=== PATIENT | female | born 1945 | race Caucasian/White ===

== ENCOUNTER → 2019-11-12 11:04 | Outpatient (CLI) | payer MEDICARE, SELFPAY ==
--- NOTE | ~2019-11-12 | XR_ITS ---
XR shoulder RT min 2V 11/12/2019 12:05 Indication: Right shoulder pain Procedure: 4 views right shoulder Comparison: No prior studies for comparison. Findings: There is mild osteoarthritis of the right acromioclavicular joint. No fracture or traumatic malalignment. Osteopenia. Visualized lung parenchyma is unremarkable. No significant soft tissue abn ormality. Impression: 1: Mild osteoarthritis of the right acromioclavicular joint. Reviewed, dictated and finalized at location A. Impression: 1: Mild osteoarthritis of the right acromioclavicular joint.
== END ==
PROVIDERS: PCP Internal Medicine
DX: M19.011 Primary osteoarthritis, right shoulder (principal)
CPT/HCPCS: 73030

== ENCOUNTER → 2022-01-03 14:41 | Outpatient (CLI) | payer MEDICARE, SELFPAY ==
--- NOTE | ~2022-01-03 | US_ITS ---
EXAMINATION: US renal BI DATE: 01/03/2022 15:12 INDICATION: Chronic kidney disease TECHNIQUE: Multiple grayscale and Doppler ultrasound images of the kidneys were obtained. COMPARISON: None. FINDINGS: The right kidney measures 6.9 x 3.8 x 4.7 cm and contains a 2.4 cm cyst. The left kidney me asures 8.5 x 5.3 x 3.4 cm. The kidneys demonstrate normal parenchymal echogenicity. There is no hydro nephrosis. The bladder is incompletely distended but normal in appearance. IMPRESSION: 1. Mild atrophy of the kidneys. Reviewed, dictated and finalized at location F. ECT DEVELOPMENT ENGINEER
== END ==
PROVIDERS: PCP Internal Medicine; Visit Provider Internal Medicine Nephrology
DX: N18.32 Chronic kidney disease, stage 3b (principal); I10 Essential (primary) hypertension; E11.22 Type 2 diabetes mellitus with diabetic chronic kidney disease; E78.00 Pure hypercholesterolemia, unspecified; N26.1 Atrophy of kidney (terminal)
CPT/HCPCS: 76775

== ENCOUNTER 2024-12-17 11:09 | Emergency (ER) | payer MEDICARE, SELFPAY ==
--- NOTE | ~2024-12-17 | XR_ITS ---
PROCEDURE(S): 2 views of the left hip and AP pelvis INDICATION(S): Injury COMPARISON(S): None. TECHNIQUE: 2 radiographic images of the left hip and an AP pelvis image were submitted for interpretation. FINDINGS: Bones: There are no fractures seen. There are no destructive lesions or other lesions identified. Joints: There are no dislocations identified. There is no evidence of erosive arthropathy. There is a large calcification in the pelvis thought to lie in a uterine fibroid. 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 Vascular calcifications. IMPRESSION: No acute abnormalities are seen. Reviewed, dictated and finalized at location A.
[2024-12-17 11:14] VITALS: BP 145/60; PULSE 60; RESP 16; TEMP 36.4; O2SAT 96
--- OUTSIDE RECORDS SUMMARY | 2024-12-17 12:21 | XMS_ITS | Clinical Summary ---
Author Organization [facility] Address [address] [place] [place] [address] Care Team Providers Care Technology Integration Specialist Name Role Phone Nathan Roland MD Primary Care Provider [phone] Srinivas Hogan MD Unavailable Source Comments [facility],non-owned Affiliates and Associated Physician Practices is amultiple site organization consisting of ambulatory clinics and hospital sitesin [place], [place], [place] and [place]. This disclosure is being madepursuant to the Care Everywhere program and may not contain all information available regarding this patient. Last updated 17.[facility] Allergies No known active allergies Medications * Be aware that medications may not be up to date on this document. Alwaysverify current medications with the patient. ibuprofen (MOTRIN) 600 MG tablet Take 600 mg by mouth every 6 hours as needed for Pain Active amLODIPine (NORVASC) 5 MG tablet Take 5 mg by mouth once daily Active sitaGLIPtin-met FORMIN (JANUMET) 50-500 MG tablet Take 1 Tab by mouth 2 times daily with morning and evening meal Active tamoxifen (NOLVADEX) 20 MG tablet Take 20 mg by mouth once daily Active ALPRAZolam (XANAX) 0.5 MG tablet Take by mouth 3 times daily as needed for Anxiety Active Hydrocodone-Branden taminophen (VICODIN ES) 7.5-300 MG TABS Take 1 Tab by mouth Active pravastatin (PRAVACHOL) 80 MG tablet Take 80 mg by mouth once daily 12/22/2014 Active venlafaxine (EFFEXOR) 37.5 MG tablet Take 37.5 mg by mouth once daily 11/17/2014 Active Active Problems Problem Noted Date Diagnosed Date Primary osteoarthritis of right knee 02/01/2015 Social History Tobacco Use Types Packs/Day Years Used Date Smoking Tobacco: Unknown Alcohol Use Standard Drinks/Week Comments Not Asked 0 (1 standard drink = 0.6 oz pur e alcohol) Comments Unknown Sex and Gender Information Value Date Recorded Sex Assigned at Not on file Legal Sex Female 12:01 PM CDT Gender Identity Not on file Sexual Orientation Not on file Last Filed Vital Signs Vital Sign Reading Time Taken Comments Blood Pressure - - Pulse - - Temperature - - Respiratory Rate - - Oxygen Saturation - - Inhaled Oxygen Concentration - - Weight 56.7 kg (125 lb) 08/13/2014 11:45 AM CDT Height 154.9 cm (5' 1) 08/13/2014 11:45 AM CDT Body Mass Index 23.62 08/13/2014 11:45 AM CDT Plan of Treatment Health Maintenance Due Date Last Done Comments BONE DENSITY TESTING 1945 COVID-19 VACCINE (#1) 09/26/1952 HEPATITIS C SCREENING 09/22/1965 DTAP/TDAP/TD VACCINES (1 - Tdap) 09/26/1966 PNEUMOCOCCAL VACCINE 50+ (1 of 1 - PCV) 09/26/1997 ZOSTER VACCINE (1 of 2) 09/26/1997 Respiratory Syncytial Virus (RSV) Vaccine Pt: or over 60 yrs (1 - 1-dose 75+ series) 09/26/2022 DEPRESSION SCREENING 02/19/2024 MEDICARE AWV CALENDAR YEAR 2024 INFLUENZA VACCINE (#1) 2024 HEPATITIS B VACCINE Aged Out No longe r eligible based on patient's age to complete this topic HIB VACCINE Aged Out No longer eligi ble based on patient's age to complete this topic HPV VACCINE Aged Out No longer eligi ble based on patient's age to complete this topic MENINGOCOCCAL (Group B) VACC INE SHARED DECISION-MAKING Aged Out No longer eligibl e based on patient's age to complete this topic MENINGOCOCCAL GROUPS A/C/Y/W VACCINE Aged Out No longer eligible b ased on patient's age to complete this topic Insurance [employer] MEDICARE ADV Care Teams Technology Integration Specialist Relationship Specialty Start Date End Date Nathan Roland MD [address] [address] [address] [place] [address] PCP - General Internal Medicine 07/14/14 [place] [address] [place] [address] Orthopedic Surgery 08/13/14
--- OUTSIDE RECORDS SUMMARY | 2024-12-17 12:21 | XMS_ITS | Encounter Summary ---
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, including hip; Basal cell carcinoma of skin of nose Social History Tobacco Use Types Packs/Day Years Used Date Smoking Tobacco: Unknown Alcohol Use Standard Drinks/Week Comments Not Asked 0 (1 standard drink = 0.6 oz pur e alcohol) Comments Unknown Sex and Gender Information Value Date Recorded Sex Assigned at Not on file Legal Sex Female 12:01 PM CDT Gender Identity Not on file Sexual Orientation Not on file documented as of this encounter Plan of Treatment Not on file documented as of this encounter Procedures Procedure Name Priority Date/Time Associated Diagnosis Comments DERMATOPATHOLOGY Routine 07/10/2023 12:0 0 AM CDT 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 SKIN, right anterior medial distal thigh: DERMAL SCAR RESIDUAL SQUAMOUS CELL CARCINOMA NOT IDENTIFIED (L90.5) Specimen B. SKIN, nasal supratip: CHRONIC PERIFOLLICULITIS (L73.8) (see microscopic description and comment) 12:30 PM CDT DERMATOPATHOLOGY LABORATORY at 1230 CDT Clinical History A: Scc. Check margins. B: Bcc. 12:30 PM CDT DERMATOPATHOLOGY LABORATORY Gross Description Specimen A: Received is one formalin filled container labeled with the patient's name and designated right anterior medial distal thigh. The specimen consists of a non-oriented ellipse of skin measuring 51k00w2 mm. The epidermal surface is unremarkable. The margin is inked green. The 12 o'clock and 6 o'clock tips are submitted in cassette 1. The remainder of the ellipse is serially sectioned and submitted in cassette 2. Jar 0. Specimen B: Received is one formalin filled container labeled with the patient's name and designated nasal supratip. The specimen consists of a shave biopsy measuring 5x3x1 mm. Jar 0. 12:30 PM CDT DERMATOPATHOLOGY LABORATORY Microscopic Description Specimen A. SKIN, right anterior medial distal thigh: There are fibroblasts and collagen bundles oriented parallel to the skin surface. There are elongated blood vessels, some of which are oriented perpendicular to the skin surface. No residual squamous cell carcinoma is identified. Specimen B. SKIN, nasal supratip: Sections show a perifollicular lymphohistiocytic infiltrate. Additional deeper sections were obtained and reviewed. COMMENT: Given the superficial nature of the biopsy specimen, a deeper dermal process cannot be excluded. 12:30 PM CDT DERMATOPATHOLOGY LABORATORY Disclaimer An external and internal positive and negative controls are appropriate for the histochemical, immunohistochemical and immunofluorescence stain(s) in this case (if any), except where stated explicitly. The performance characteristics of the stain(s) cited in this report were developed and its performance characteristic determined by the Dermatopathology Laboratory at [facility], directed by Dr. Ricky De La Fuente. These tests need not be, and therefore are not, approved by the [place] Food and Drug Administration. The tests are used for clinical purposes. Billing Codes Specimen Charges Stain Charges 63106 05645 1 1 4 12:30 PM CDT DERMATOPATHOLOGY LABORATORY Embedded Images 12:30 PM CDT DERMATOPATHOLOGY LABORATORY Pathology/Cytology TISSUE SPECIMEN FROM SKIN / Unknown 07/10/2023 07/11/2023 1:56 PM CDT Miscellaneous samples (specimen) TISSUE SPECIMEN FROM SKIN / Unknown 07/10/2023 07/11/2023 1:56 PM CDT Jay Horton MD LAB - PATHOLOGY/CYTOLOGY ORD ERABLES Final Result DERMATOPATHOLOGY LABORATORY [facility] - Department of Dermatology [facility] Medicine [address] [place] [address], [address] [phone] documented in this encounter Visit Diagnoses Diagnosis 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
--- OUTSIDE RECORDS SUMMARY | 2024-12-17 12:21 | XMS_ITS | Clinical Summary ---
Author Organization [facility] Address [address] [place] [address] Care Team Providers Care Mountain Or Glacier Guide Name Role Phone Nathan Roland MD Primary Care Provider Allergies No known active allergies Medications atorvastatin (LIPITOR) 80 mg tablet Take 80 mg by mouth daily 2 Active ergocalciferol (VITAMIN D) 50,000 unit capsule Take 50,000 Units by mouth once a week [address] (PROTONIX) 40 mg EC tablet Take 40 mg by mouth daily 2 Active ALPRAZolam (XANAX) 0.5 mg tablet Take 0.5 mg by mouth 3 (three) times a day as needed for anxiety Active glipiZIDE (GLUCOTROL) 5 mg tabletIndications:t ype 2 diabetes mellitus Take 5 mg by mouth daily before breakfast Active HYDROcodone-acetami nophen (NORCO) 5-325 mg per tabletIndications:P ain Take 1 tablet by mouth every 6 (six) hours as needed for pain Active SITagliptin (JANUVIA) 100 mg tabletIndications:t ype 2 diabetes mellitus Take 100 mg by mouth daily Active amLODIPine (NORVASC) 5 mg tabletIndications:h ypertension Take 1 tablet (5 mg total) by mouth daily 30 tablet 2 2 Active metoprolol tartrate (LOPRESSOR) 25 mg immediate release tablet Take 1 tablet (25 mg total) by mouth 2 (two) times a day 60 tablet 2 2 Active aspirin 81 mg enteric coated tabletIndications:C erebral Thromboembolism Prevention,preventi on of thrombosis Take 1 tablet (81 mg total) by mouth daily 100 tablet 3 2 Active PARoxetine (PAXIL) 10 mg tabletIndications:A nxiety with Depression,Generali zed Anxiety Disorder Take 1 tablet (10 mg total) by mouth every morning 30 tablet 2 2 Active Active Problems Problem Noted Date Diagnosed Date Abnormal nuclear stress test 08/16/2021 Essential (primary) hypertension 08/16/2021 Dyslipidemia 08/16/2021 Renal insufficiency 08/16/2021 Syncope and collapse 08/14/2021 Orthostatic hypotension Hypertensive urgency Hyponatremia Type 2 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 Monthly or less 08/16/2021 Q2: How many drinks containi ng alcohol do you have on a typical day when you are drinking? 1 or 2 08/16/2021 Q3: How often do you have si x or more drinks on one occasion? Never 08/16/2021 Comments No Sex and Gender Information Value Date Recorded Sex Assigned at Not on file Legal Sex Female 1:23 AM RESTORATIVE COORDINATOR Gender Identity Not on file Sexual Orientation Not on file Obstetrics History Last Filed Vital Signs Vital Sign Reading Time Taken Comments Blood Pressure 130/59 08/16/2021 11:36 AM CDT Pulse 59 08/16/2021 11:36 AM CDT Temperature 36.5 C (97.7 F) 08/16/2021 11:36 AM CDT Respiratory Rate 18 08/16/2021 11:3 6 AM CDT Oxygen Saturation 93% 08/16/2021 11: 36 AM CDT Inhaled Oxygen Concentration - - Weight 61.2 kg (134 lb 14.7 oz) 08/15/2021 9:30 AM CDT Height 154.9 cm (5' 1) 08/15/2021 9:30 AM CDT Body Mass Index 25.49 08/15/2021 9:30 AM CDT Plan of Treatment Health Maintenance Due Date Last Done Comments Albumin Creatinine Ratio, Urine 1945 Depression Screening 1945 Hemoglobin A1C 1945 Hepatitis C Screening 1945 Osteoporosis Screening-Bone Density Scan 1945 Dilated Eye Exam 1945 Foot Exam 1945 DTaP/Tdap/Td Vaccine (1 - Tdap) 09/26/1958 Hepatitis B Screening 09/26/1965 Zoster Vaccine (1 of 2) 09/26/1997 Well Visit 65+ 09/26/2012 Pneumococcal vaccine 65+ (2 of 2 - PPSV23, PCV20, or PCV21) 04/21/2014 02/24/2014 Fall Risk Assessment 08/16/2022 08/16/2021 Lipid Panel 08/16/2022 08/16/2021 eGFR 08/16/2022 08/16/2021, 08/14/2021 Covid-19 Vaccine (5 - 2024-2 6 season) 2024 03/14/2021, 01/10/2021, 05/27/2020, Additional history exists Influenza Vaccine (#1) 2024 , 11/29/2016, 02/22/2015, Additional history exists Medical Devices Implanted Type Area [employer] President [employer] Device Identifier Shelf Expiration Date Model / Serial / Lot Angio-Seal Vip 6fr Closere Device [id number] - [id number] Implanted:Qty: 1 on 08/16/2021 by Storm Cole MD at [facility] 05/18/2022 [id number] / / [id number] Procedures Procedure Name Priority Date/Time Associated Diagnosis Comments EGFR Routine 08/16/2021 6:23 AM CDT LIPID PANEL Routine 08/16/2021 6:23 AM CDT from Last 3 Months or Most Recently Relevant to Health Maintenance Results * eGFR (08/16/2021 6:23 AM CDT) eGFR 53 mL/min/1. 73 m2 [facility] Comment: Interpretive Data Reference Interval Normal >/= 90 mL/min/1.73m2 Mildly decreased* 60 - 89 mL/min/1.73m2 Mildly to moderately decreased 45 - 59 mL/min/1.73m2 Moderately to severely decreased 30 - 44 mL/min/1.73m2 Severely decreased 15 - 29 mL/min/1.73m2 Kidney Failure < 15 mL/min/1.73m2 *Relative to young adult level Estimated glomerular filtration rate is determined by the 2020 CKD-EPI equation recommended by the National Kidney Foundation (A Unifying Approach to GFR Estimation: Recommendations of the NKF-ASK Task Force on Reassessing the Inclusion of Race in Diagnosing Kidney Disease, JASN 2020). The CKD-EPI equation should not be used for patients with unstable renal function and has not been validated in children and those over 70. Current interpretive data was last reviewed 2020. Blood 08/16/2021 6:23 AM CDT 08/16/2021 6:26 AM CDT us Storm Cole MD LAB BLOOD ORDERABLES Final Result [facility] [address] [facility] Department [place] [address] * Lipid panel (08/16/2021 6:23 AM CDT) Cholesterol 178 30 - 199 mg/dL [facility] Comment: Interpretive Data Ages < or = 19 years Acceptable: <170 mg/dL Borderline high: 170-199 mg/dL High: >or= 200 mg/dL Ages > or = 20 years Desirable: <200 mg/dL Borderline high: 200-239 mg/dL High: >or= 240 mg/dL Literature References: 1. Expert Panel on Integrated Guidelines for Cardiovascular Health and Risk Reduction in Children and Adolescents. Pediatrics 2011;128:S213 2. NCEP Expert Panel. Circulation 2004;110:227 Current Interpretive Data was last revised on 2017. Triglycerides 132 <=149 mg/dL [facility] Comment: Interpretive Data Ages < or = 9 years Acceptable: <75 mg/dL Borderline high: 75-99 mg/dL High: >or= 100 mg/dL Ages 10 to 20 years Acceptable: <90 mg/dL Borderline high: 90-129 mg/dL High: >or= 130 mg/dL Ages > or = 20 years Desirable: <150 mg/dL Borderline high: 150-199 mg/dL High: 200-499 mg/dL Very high: >or= 499 mg/dL Literature References: 1. Expert Panel on Integrated Guidelines for Cardiovascular Health and Risk Reduction in Children and Adolescents. Pediatrics 2011;128:S213 2. NCEP Expert Panel. Circulation 2004;110:227 Current Interpretive Data was last revised on 2017. HDL 61 >=40 mg/dL [facility] Comment: Interpretive Data Ages < or = 19 years Acceptable: >45 mg/dL Borderline low: 40-45 mg/dL Low: <40 mg/dL Ages > or = 20 years Desirable: >or= 60 mg/dL Low: <40 mg/dL Literature References: 1. Expert Panel on Integrated Guidelines for Cardiovascular Health and Risk Reduction in Children and Adolescents. Pediatrics 2011;128:S213 2. NCEP Expert Panel. Circulation 2004;110:227 Current Interpretive Data was last revised on 2017. LDL, calculated 91 <=129 mg/dL [facility] Comment: Interpretive Data Ages < or = 19 years Acceptable: <110 mg/dL Borderline high: 110-129 mg/dL High: >or= 130 mg/dL Ages > or = 20 years Optimal: <100 mg/dL Near optimal: 100-129 mg/dL Borderline high: 130-159 mg/dL High: >160 mg/dL Literature References: 1. Expert Panel on Integrated Guidelines for Cardiovascular Health and Risk Reduction in Children and Adolescents. Pediatrics 2011;128:S213 2. NCEP Expert Panel. Circulation 2004;110:227 Current Interpretive Data was last revised on 2017. Non-HDL Cholesterol 117 mg/dL [facility] Comment: Interpretive Data Ages < or = 19 years Acceptable: <120 mg/dL Borderline high: 120-144 mg/dL High: >145 mg/dL Ages > or = 20 years When triglycerides are >200 mg/dL, Non-HDL cholesterol is a secondary target of therapy with treatment goals that are 30 mg/dL greater than the LDL cholesterol target. Literature References: 1. Expert Panel on Integrated Guidelines for Cardiovascular Health and Risk Reduction in Children and Adolescents. Pediatrics 2011;128:S213 2. NCEP Expert Panel. Circulation 2004;110:227 Current Interpretive Data was last revised on 2017. Chol/HDL ratio 3 [facility] Blood 08/16/2021 6:23 AM CDT 08/16/2021 6:26 AM CDT Luana Salazar MD LAB BLOOD ORDERABLES Final Result [facility] [address] [facility] Department [place] [address] from Last 3 Months or Most Recently Relevant to Health Maintenance Insurance [facility] MEDICARE ADVANTAGE [facility] MEDIC[facility] ADVANTAGE AET MEDICARE Advance Directives For more information, please contact: [phone] * Full Code (Latest Code Status on File) Date Activated Date Inactivated Comments 08/14/2021 4:49 PM 08/16/2021 5:50 PM Care Teams Mountain Or Glacier Guide Relationship Specialty Start Date End Date Nathan Roland MD [address] [facility] [address] [place] [address] PCP - General Internal Medicine 08/15/21
--- OUTSIDE RECORDS SUMMARY | 2024-12-17 12:21 | XMS_ITS | Encounter Summary ---
Author Organization [facility] Address [address] [place] [address] Care Team Providers Care Woodworking Machine Setter Name Role Phone Nathan Roland MD Primary Care Provider [phone] Srinivas Hogan MD Unavailable Encounter Details Date Type Department Care Team (Late st Contact Info) Description 05/29/2023 Lab Requisition [facility] - DermPath Lab [address] [place] [phone] [place] [address] [address] [place] [phone] Neoplasm of uncertain behavior of skin Social History Tobacco Use Types Packs/Day Years [...] Priority Date/Time Associated Diagnosis Comments DERMATOPATHOLOGY Routine 05/29/2023 3:33 AM CDT Neoplasm of uncertain behavior of skin documented in this encounter Results * DERMATOPATHOLOGY (05/29/2023 3:33 AM CDT) Case Report Dermatopathology Report Case: [id number] Authorizing Provider: Jay Horton MD Collected: 05/29/2023 03:33 AM Ordering Location: [facility] - Received: 05/30/2023 12:53 PM DermPath Lab Pathologist: Lani Ram MD Specimen: Skin, right anterior medial distal thigh 1:35 PM CDT DERMATOPATHOLOGY LABORATORY Final Diagnosis Specimen A. SKIN, right anterior medial distal thigh: SQUAMOUS CELL CARCINOMA, WELL DIFFERENTIATED (C44.722) 1:35 PM CDT DERMATOPATHOLOGY LABORATORY at 1335 CDT Clinical History SCC. 1:35 PM CDT DERMATOPATHOLOGY LABORATORY Gross Description Specimen A: Received is one formalin filled container labeled with the patient's name and designated right anterior medial distal thigh. The specimen consists of a shave biopsy measuring 55d22p3 mm. Jar 0. 1:35 PM CDT DERMATOPATHOLOGY LABORATORY Microscopic Description Specimen A. SKIN, right anterior medial distal thigh: Arising in the epidermis and extending into the dermis there are irregularly shaped aggregates of keratinocytes showing evidence of premature cornification. 1:35 PM CDT DERMATOPATHOLOGY LABORATORY Disclaimer An external and internal positive and negative controls are appropriate for the histochemical, immunohistochemical and immunofluorescence stain(s) in this case (if any), except where stated explicitly. The performance characteristics of the stain(s) cited in this report were developed and its performance characteristic determined by the Dermatopathology Laboratory at [facility], directed by Dr. Ricky De La Fuente. These tests need not be, and therefore are not, approved by the [place] Food and Drug Administration. The tests are used for clinical purposes. Billing Codes Specimen Charges Stain Charges 58651 1 1:35 PM CDT DERMATOPATHOLOGY LABORATORY Embedded Images 1:35 PM CDT DERMATOPATHOLOGY LABORATORY Pathology/Cytolo gy TISSUE SPECIMEN FROM SKIN / Unknown 05/29/2023 3:33 AM CDT 05/30/2023 12:53 PM CDT us Jay Horton MD LAB - PATHOLOGY/CYTOLOGY ORD ERABLES Final Result DERMATOPATHOLOGY LABORATORY [facility] - Department of Dermatology [address], [address] Floor [place], [place] [address] [phone] documented in this encounter Visit Diagnoses Diagnosis Neoplasm of uncertain behavior of skin documented in this encounter Care Teams Woodworking Machine Setter Relationship Specialty Start Date End Date Nathan Roland MD [facility] [address] [address] [place] [phone] PCP - General Internal Medicine 07/14/14 [place] [address] [place] [address] Orthopedic Surgery 08/13/14 documented as of this encounter
--- OUTSIDE RECORDS SUMMARY | 2024-12-17 12:21 | XMS_ITS | Patient Health Record ---
Author Organization [facility] [employer] Address [address] [address] Care Team Providers Care Shipping Lead Person Name Role Phone LUISPETROSPITER Unavailable [phone] Nathan Roland MD Unavailable Unavailable Reason For Referral No Information Medications Medication SIG (Take, Route, Frequency, Duration) Notes Start Date End Date Status Naproxen 500 MG 1 tablet as needed O rally with food every 12 hrs; Duration: 30 days Active Lidocaine 5 % 1 patch remove after 12 hours Externally remove after 12 hours; Duration: 30 days 10/15/2019 Active Xanax 0.25 MG 1 tablet Orally qday Active Pravastatin Sodium 10 MG 1 tablet Orally Once a day Active Janumet 50-500 MG 1 tablet with meals Orally Twice a day Active amLODIPine Besylate 10 MG 1 tablet Orally Once a day Active Glimepiride 1 MG 1 tablet with breakf ast or the first main meal of the day Orally Once a day; Duration: 30 day(s) Active VESIcare 5 MG 1 tablet Orally Once a day; Duration: 30 day(s) Active Ambien 5 MG 1 tablet at bedtime Orally Once a day Active Lampe 5-325 MG 1 tablet as needed O rally every 8 hrs prn Active Social History Tobacco Use: Social History Observation Description Date Details (start date - stop date) Never Smoker NA - NA Tobacco Use/Smoking Question Answer Notes Are you a nonsmoker Tobacco use other than smoking: Question Answer Notes Are you an other tobacco user? 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) Active confirmed Problem Lumbar spondylosis (490635266) Lumbar spondylosis (M47.816) Active confirmed Problem Closed fracture of multiple right ribs (disorder) (4349553928998000 2) Closed fracture of multiple ribs of right side, initial encounter (S22.41XA) Active confirmed Problem Spinal enthesopathy of lumbosacral region (132834276061280) Spinal enthesopathy of lumbosacral region (M46.07) Active confirmed Problem Closed fracture of multiple left ribs (2468922851494349 2) Closed fracture of multiple ribs of left side, initial encounter (S22.42XA) Active confirmed Problem Rupture of right rotator cuff (7871758858654939 3) Nontraumatic tear of right rotator cuff, unspecified tear extent (M75.101) Active confirmed Plan Of Treatment Pending Test Test Name Order Date X ray : Hip, right 03/30/2019 X ray : Shoulder, right 11/09/2019 MRI : shoulder, right without contrast 1 Insurance Providers Payer Name Payer Address Payer Phone Subscriber Number Group Number Insured Name Patient Relationship to Insured Coverage Start Date Coverage End Date [employer] MEDICARE [address] [address] [place] [address] [id number] SEAN SANCHEZ Self - patient is the insured Medical (General) History Medical History History ICD Code Diabetes Surgical History Surgery Date(Month/Year)
--- OUTSIDE RECORDS SUMMARY | 2024-12-17 12:21 | XMS_ITS | Encounter Summary ---
Author Organization [facility] Address [address] [facility] [facility] [address] Care Team Providers Care Learning Analyst Name Role Phone Nathan Roland MD Primary Care Provider [phone] Srinivas Hogan MD Unavailable [phone] Encounter Details Date Type Department Care Team (Late st Contact Info) Description 06/23/2019 Lab Requisition [facility] [address] [facility] [place] [place] [address] [place] [address] [address] Social History Tobacco Use Types Packs/Day Years Used Date Smoking Tobacco: Never Assessed Comments Unknown Sex and Gender Information Value Date Recorded Sex Assigned at Not on file Legal Sex Female 12:01 PM CDT Gender Identity Not on file Sexual Orientation Not on file documented as of this encounter Plan of Treatment Not on file documented as of this encounter Procedures Procedure Name Priority Date/Time Associated Diagnosis Comments DERMATOPATHOLOGY Routine 06/22/2019 12:0 0 AM CDT documented in this encounter Results * DERMATOPATHOLOGY (06/22/2019 12:00 AM CDT) Case Report Dermatopathology Report Case: [id number] Authorizing Provider: German Ash MD Collected: 06/22/2019 12:00 AM Ordering Location: [facility] Received: 06/23/2019 07:21 AM Pathologist: Jenifer Marie MD Specimen: Skin, right cheek 0 1:27 PM CDT DERMATOPATHOLOGY LABORATORY Final Diagnosis Specimen A. SKIN, right cheek: ACTINIC KERATOSIS (L57.0) (see microscopic description) 0 1:27 PM CDT DERMATOPATHOLOGY LABORATORY at 1327 CDT Clinical History R/O BCCA. 0 1:27 PM CDT DERMATOPATHOLOGY LABORATORY Gross Description Specimen A: Received is one formalin filled container labeled with the patient's name and designated right cheek. The specimen consists of a shave biopsy measuring [id number]. Jar 0. 0 1:27 PM CDT DERMATOPATHOLOGY LABORATORY Microscopic Description Specimen A. SKIN, right cheek: There is focal parakeratosis. The lower half of the epidermis shows disorderly maturation of keratinocytes with nuclear pleomorphism. Additional deeper sections were obtained and reviewed. 0 1:27 PM CDT DERMATOPATHOLOGY LABORATORY Disclaimer An external and internal positive and negative controls are appropriate for the histochemical, immunohistochemical and immunofluorescence stain(s) in this case (if any), except where stated explicitly. The performance characteristics of the stain(s) cited in this report were developed and its performance characteristic determined by the Dermatopathology Laboratory at [facility], directed by Dr. Ricky De La Fuente. These tests need not be, and therefore are not, approved by the [place] Food and Drug Administration. The tests are used for clinical purposes. Billing Codes Specimen Charges Stain Charges 90345 1 0 1:27 PM CDT DERMATOPATHOLOGY LABORATORY Embedded Images 0 1:27 PM CDT DERMATOPATHOLOGY LABORATORY Pathology/Cytolog y TISSUE SPECIMEN FROM SKIN / Unknown 06/22/2019 06/23/2019 7:21 AM CDT us German Ash MD LAB - PATHOLOGY/CYTOLOGY ORDERAB LES Final Result DERMATOPATHOLOGY LABORATORY [facility] - Department of Dermatology [address] [place] [address], 5th [place] [address], [facility] [phone] documented in this encounter Visit Diagnoses Not on filedocumented in this encounter Care Teams Learning Analyst Relationship Specialty Start Date End Date Nathan Roland MD [address] [place] [address] [address] [place] [address] PCP - General Internal Medicine 07/14/14 [place] [address] [place] [address] Orthopedic Surgery 08/13/14 documented as of this encounter
--- OUTSIDE RECORDS SUMMARY | 2024-12-17 12:22 | XMS_ITS | Clinical Summary ---
Author Organization [facility] [place] Address [address] [place] [address] Phone Care Team Providers Care Information Clerk [employer] Name Role Phone Nathan Roland MD Primary Care Provider [phone] Allergies No known active allergies Medications P-EPHED HCL/ACETAMINOPHE N (TYLENOL SINUS ORAL) Take by mouth 1 time daily as needed. 1 Active pravastatin (PRAVACHOL) 40 mg Oral tablet Take 40 mg by mouth Daily LATE. Active amLODIPine (NORVASC) 5 mg Oral tablet Take 5 mg by mouth daily. Active ALPRAZolam (XANAX) 0.5 mg Oral tablet Take 1 Tab by mouth every 6 hours as needed for Anxiety. 60 Tab 1 1 Active HYDROcodone-acet aminophen (NORCO) 5-325 mg Oral tabletIndication s:Invasive ductal carcinoma of breast (CMS/HCC) Take 1 Tab by mouth every 4 hours as needed. Active venlafaxine (EFFEXOR) 37.5 mg tablet Take 1 Tablet (37.5 mg) by mouth daily. 90 Tablet 3 6 Active pantoprazole (PROTONIX) 20 mg Tablet, Delayed Release (E.C.) Take 20 mg by mouth daily. Active glipiZIDE (GLUCOTROL) 10 mg tablet Take 5 mg by mouth daily with breakfast. 4 Active atorvastatin (LIPITOR) 80 mg tablet Take 1 tablet every day by oral route. 2 Active Farxiga 10 mg Tablet Take 10 mg by mouth daily. Active ibuprofen (MOTRIN) 800 mg tablet Take 1 Tablet by mouth 2 times daily. 4 Active ondansetron (ZOFRAN) 4 mg Tablet take 1 to 2 tablets by mouth every 6 hours as needed Active BD Chandrika 2nd Gen Pen Needle 32 gauge x 32 Needle USE TO INJECT NIGHTLY WITH TOUJEO 4 Active valACYclovir (VALTREX) 1 gram tablet Take 2,000 mg by mouth daily. Active insulin glargine (Lantus Solostar U-100 Insulin) 100 unit/mL pen syringeIndicatio ns:Type 2 diabetes mellitus with hypoglycemia without coma, with long-term current use of insulin Inject 5 Units by subcutaneous injection daily with breakfast. 15 mL 5 Active Active Problems Patient Care Coordination No te Formatting of this note migh t be different from the original. Primary Care: Nathan Roland MD Referring Provider: Nathan Roland MD [address] [facility] [address] [place] [id number] Other: Dr Dianne Boyce Problem Noted Date Diagnosed Date Vulvar dermatitis 12/02/2017 Lumbar radiculopathy 08/01/2011 Invasive ductal carcinoma of breast, RIGHT Overview (06/04/2012): PATHOLOGY: T1 N1 Date: 04/17/10 core bx, 05/26/10 lumpectomy with SLN; Breast: Right Cell type: IDC, multifocal 1.0cm, + DCIS ER: (+) 8/8 IL: (+) 7/8 Ki67: 31% Her2 esau: (not) amplified Grade: IG (NH7) Lymph node status: (+) 1/1 2.1mm focus LVI: (not) present Staging: T1b N1 Mx Stage: IIa TC X 4 (08/11/10- Knee pain, left Bone spur Bulging lumbar disc Encounters Date Type Department Care Team Description 12/01/2024 External Device Data ST[facility] ABSTRACTION Provider, Abstract 11/03/2024 External Device Data [facility] ABSTRACTION Provider, Abstract 10/06/2024 External Device Data [facility] ABSTRACTION Provider, Abstract 09/22/2024 External Device Data [facility] ABSTRACTION Provider, Abstract 09/22/2024 Telephone [facility] [place] [facility] [address] [place] [address] Prosper Estrella MD Scheduling from Last 3 Months Family History Medical History Relation Name Comments No Known Problems Brother No Known Problems Daughter Stroke Father No Known Problems Maternal Grandfather No Known Problems Maternal Grandmother Uterine Cancer Mother dx @ age 40's No Known Problems Other No Known Problems Paternal Grandfather No Known Problems Paternal Grandmother Diabetes Sister 1 No Known Problems Sister 2 No Known Problems Son 1 No Known Problems Son 2 Breast Cancer Neg Hx Cancer Neg Hx Ovarian Cancer Neg Hx Relation Name Status Comments Brother Daughter Father Maternal Grandfather Maternal Grandmother Mother Other Paternal Grandfather Paternal Grandmother Sister 1 Sister 2 Alive Son 1 Alive Son 2 Alive Social History Tobacco Use Types Packs/Day Years Used Date Smoking Tobacco: Never Smokeless Tobacco: Never Tobacco Cessation:Counseling Given: Not Answered Alcohol Use Standard Drinks/Week Comments Yes 2.5 (1 standard drink = 0.6 oz p ure alcohol) moderate Feeling Safe Answer Date Recorded Are you in a relationship wi th someone who hurts you emotionally and/or physically? No 11/13/2023 Comments No Sex and Gender Information Value Date Recorded Sex Assigned at Not on file Legal Sex Female 5:09 AM GOVERNMENT OPERATIONS CONSULTANT Gender Identity Not on file Sexual Orientation Not on file Occupation Industry Job Start Date Job End Date Not on file Not on file Not on file Not on file Last Filed Vital Signs Vital Sign Reading Time Taken Comments Blood Pressure 189/73 09/08/2024 10:50 AM CDT Pulse 62 09/08/2024 10:50 AM CDT Temperature 36.9 C (98.5 F) 06/23/2024 12:02 PM CDT Respiratory Rate 18 06/23/2024 12:02 PM CDT Oxygen Saturation 96% 09/08/2024 10:50 AM CDT Inhaled Oxygen Concentration - - Weight 62.2 kg (137 lb 3.2 oz) 09/08/2024 10:50 AM CDT Height 154.9 cm (5' 1) 09/08/2024 10:50 AM CDT Body Mass Index 25.92 09/08/2024 10:50 AM CDT Plan of Treatment Upcoming Encounters Date Type Department Care Team (Late st Contact Info) Description 12/21/2024 11:00 AM GOVERNMENT OPERATIONS CONSULTANT Office Visit [facility] [place] [facility] [address] [place] [address] Prosper Estrella MD [address] [place] [address] Health Maintenance Due Date Last Done Comments DIABETES ANNUAL FOOT EXAM 09/26/1965 DIABETES ANNUAL RETINAL EXAM 09/26/1965 DIABETES MICROALBUMIN ANNUAL SCREEN 09/26/1965 LDL CHOLESTEROL ANNUAL 09/26/1965 DTAP/TDAP/TD VACCINES (1 - Tdap) 09/26/1966 ZOSTER VACCINE (1 of 2) 09/26/1997 OSTEOPOROSIS SCREENING 03/16/2013 03/16/2011, 2007 RSV VACCINE (60+ or ) (1 - 1-dose 75+ series) 09/26/2022 INFLUENZA VACCINE (#1) 2024 , 11/14/2022, 11/18/2020, Additional history exists DIABETES HBA1C Q 6 MONTHS 11/01/2024 05/01/2024 BREAST CANCER SCREENING 09/02/2025 09/03/19, 06/11/2023, 03/27/2022, Additional history exists COLORECTAL SCREENING Discontinued 01/07/2013, 01/06/2013, 03/15/2012 Colorectal Cancer Screening Discontinued PNEUMOCOCCAL VACCINE 50+ YEARS Completed 1 02/21/2023, 02/24/2014, 11/20/2008 FIT-DNA Q 3 years Discontinued FIT/FOBT Q 1 year Discontinued Flex Sig/CT Colonography Q 5 years Discontinued Procedures Procedure Name Priority Date/Time Associated Diagnosis Comments MAMMO 3D PATSY DIAGNOSTIC BILAT W OR WO CAD Routine 09/02/2024 12:11 PM CDT Malignant neoplasm of nipple of right breast in female, estrogen receptor positive (CMS/HCC) XR DEXA BONE DENSITY AXIAL 1 OR MORE SITES Routine 03/16/2011 10:46 AM GOVERNMENT OPERATIONS CONSULTANT Post-menopausal Invasive ductal carcinoma of breast (CMS/HCC) from Last 3 Months or Most Recently Relevant to Health Maintenance Results * MAMMO 3D PATSY DIAGNOSTIC BILAT W OR WO CAD (09/02/2024 12:11 PM CDT) Anatomical Region Laterality Modality Breast Bilateral Mammography 09/02/2024 12:1 2 PM CDT Impressions 09/02/2024 12:18 PM CDT IMPRESSION: 1. No concerning developing abnormality identified. OVERALL FINAL ASSESSMENT: BI-RADS CATEGORY 2: Benign findings. RECOMMENDATION: 1. Recommend annual mammography. DICTATION LOCATION: [facility] Narrative 09/02/2024 12:18 PM CDT BILATERAL DIAGNOSTIC DIGITAL MAMMOGRAM WITH 3D TOMOSYNTHESIS AND CAD DATE: 09/02/2024 12:11 PM HISTORY: Personal history of right-sided breast surgery, yearly exam TECHNIQUE: Full field digital diagnostic mammograms of both breasts were obtained with 2D and 3D acquisitions. CAD was utilized. COMPARISON: Comparison made to studies dating back to November 2017 BREAST COMPOSITION: There are scattered areas of fibroglandular density. FINDINGS: Right Breast: No concerning masses, calcifications or distortion. Postoperative changes within the breast consistent with prior breast conservation therapy. Left Breast: No concerning masses, calcifications or distortion. us Ludy Eugene DO MAMMO ORDERABLES Final Resu lt * XR DEXA BONE DENSITY AXIAL 1 OR MORE SITES (03/16/2011 10:46 AM GOVERNMENT OPERATIONS CONSULTANT) Anatomical Region Laterality Modality Computed Radiogr aphy 03/16/2011 10:4 5 AM GOVERNMENT OPERATIONS CONSULTANT Narrative 03/16/2011 10:53 AM GOVERNMENT OPERATIONS CONSULTANT XR DEXA BONE DENSITY AXIAL 1 OR MORE SITES HISTORY: 65 yo F with postmenopausal symptoms with a history of breast carcinoma needing evaluation for osteoporosis. PROCEDURE: Using a Totango dual energy x-ray absorptiometry system, the patient's bone mineral density was measured over the lumbar spine, forearm and femurs. Comparison was made to age and sex matched normal values. FINDINGS: Lumbar Spine (L1-L4) Bone Mineral Density = 1.381 gm/cm2 Compared to young adult (T-score), difference of +1.7 Standard Deviations. The patient's spine BMD is above normal when compared to that of a young adult. Left Femoral Neck Bone Mineral Density = 1.047 gm/cm2 Compared to young adult (T-score), difference of +0.1 Standard Deviations. The patient's left femoral neck BMD is normal when compared to that of a young adult. Right Femoral Neck Bone Mineral Density = 1.014 gm/cm2 Compared to young adult (T-score), difference of -0.2 Standard Deviations. The patient's right femoral neck BMD is normal when compared to that of a young adult. Left Radius 33% Bone Mineral Density = 0.825 gm/cm2 Compared to young adult (T-score), difference of -0.7 Standard Deviations. The patient's left Radius 33% BMD is normal when compared to that of a young adult. No prior DEXA studies are available for comparison. Procedure Note Edd Parr DO - 03/16/2011 XR DEXA BONE DENSITY AXIAL 1 OR MORE SITES HISTORY: 65 yo F with postmenopausal symptoms with a history of breast carcinoma needing evaluation for osteoporosis. PROCEDURE: Using a Totango dual energy x-ray absorptiometry system, the patient's bone mineral density was measured over the lumbar spine, forearm and femurs. Comparison was made to age and sex matched normal values. FINDINGS: Lumbar Spine (L1-L4) Bone Mineral Density = 1.381 gm/cm2 Compared to young adult (T-score), difference of +1.7 Standard Deviations. The patient's spine BMD is above normal when compared to that of a young adult. Left Femoral Neck Bone Mineral Density = 1.047 gm/cm2 Compared to young adult (T-score), difference of +0.1 Standard Deviations. The patient's left femoral neck BMD is normal when compared to that of a young adult. Right Femoral Neck Bone Mineral Density = 1.014 gm/cm2 Compared to young adult (T-score), difference of -0.2 Standard Deviations. The patient's right femoral neck BMD is normal when compared to that of a young adult. Left Radius 33% Bone Mineral Density = 0.825 gm/cm2 Compared to young adult (T-score), difference of -0.7 Standard Deviations. The patient's left Radius 33% BMD is normal when compared to that of a young adult. No prior DEXA studies are available for comparison. Ludy Eugene DO DIAGNOSTIC IMAGING ORDERABL ES Final Result from Last 3 Months or Most Recently Relevant to Health Maintenance Insurance [employer] PPO MCR Advance Directives For more information, please contact: [phone] * Full Code (Latest Code Status on File) Date Activated Date Inactivated Comments 12/05/2011 8:49 AM 12/05/2011 11:55 AM * Full Code Date Activated Date Inactivated Comments 11/15/2011 7:14 AM 11/15/2011 10:46 AM * Full Code Date Activated Date Inactivated Comments 09/05/2011 9:43 AM 09/06/2011 2:01 AM * Full Code Date Activated Date Inactivated Comments 08/01/2011 8:17 AM 08/01/2011 11:39 AM * Full Code Date Activated Date Inactivated Comments 06/30/2010 10:28 AM 06/30/2010 4:56 PM Care Teams Information Clerk [employer] Relationship Specialty [place] [address] [place] [address] [address] [place] [address] PCP - General Internal Medicine 04/17/10
--- OUTSIDE RECORDS SUMMARY | 2024-12-17 12:22 | XMS_ITS | Encounter Summary ---
Author Organization [facility] Address [address] [place] [address] Care Team Providers Care Customer Care Team Coach Name Role Phone Nathan Roland MD Primary Care Provider Encounter Details Date Type Department Care Team (Late st Contact Info) Description 04/19/1998 Outpatient Historical [facility] Justin Feliciano MD NO ADDRESS ON FILE Unspecified symptom associated with female genital organs (Primary Dx) Social History Tobacco Use Types Packs/Day Years Used Date Smoking Tobacco: Never Assessed Comments Unknown Sex and Gender Information Value Date Recorded Sex Assigned at Not on file Legal Sex Female 5:09 AM FIELD MARKETING LEAD Gender Identity Not on file Sexual Orientation Not on file documented as of this encounter Plan of Treatment Upcoming Encounters Date Type Department Care Team (Late st Contact Info) Description 12/21/2024 11:00 AM FIELD MARKETING LEAD Office Visit [facility] [address] [place] [address] Prosper Estrella MD [address] [place] [address] documented as of this encounter Visit Diagnoses Diagnosis Unspecified symptom associated with female genital organs- Primary documented in this encounter Care Teams Customer Care Team Coach Relationship Specialty Start Date End Date Nathan Roland MD [address] [facility] [address] [place] [address] PCP - General Internal Medicine 04/17/10 documented as of this encounter
--- OUTSIDE RECORDS SUMMARY | 2024-12-17 12:22 | XMS_ITS | Encounter Summary ---
Author Organization [facility] Address [address] [place] [address] Care Team Providers Care Route Rider Supervisor Name Role Phone Nathan Roland MD Primary Care Provider [phone] Encounter Details Date Type Department Care Team (Late st Contact Info) Description 04/21/1999 Outpatient Historical [facility] Jeronimo Casey MD NO ADDRESS ON FILE Social History Tobacco Use Types Packs/Day Years Used Date Smoking Tobacco: Never Assessed Comments Unknown Sex and Gender Information Value Date Recorded Sex Assigned at Not on file Legal Sex Female 5:09 AM DIRECTOR PRINT Gender Identity Not on file Sexual Orientation Not on file documented as of this encounter Plan of Treatment Upcoming Encounters Date Type Department Care Team (Late st Contact Info) Description 12/21/2024 11:00 AM DIRECTOR PRINT Office Visit [facility] [address] [place] [address] Prosper Estrella MD [address] [place] [address] documented as of this encounter Visit Diagnoses Not on filedocumented in this encounter Care Teams Route Rider Supervisor Relationship Specialty Start Date End Date Nathan Roland MD [address] [place] [address] PCP - General Internal Medicine 04/17/10 documented as of this encounter
--- OUTSIDE RECORDS SUMMARY | 2024-12-17 12:22 | XMS_ITS | Encounter Summary ---
Author Organization [facility] Address [address] [place] [address] Care Team Providers Care Systems Auditor Name Role Phone Nathan Roland MD Primary Care Provider [phone] Encounter Details Date Type Department Care Team (Late st Contact Info) Description 03/24/1999 Outpatient Historical [facility] Justin Feliciano MD NO ADDRESS ON FILE Unspecified symptom associated with female genital organs (Primary Dx) Social History Tobacco Use Types Packs/Day Years Used Date Smoking Tobacco: Never Assessed Comments Unknown Sex and Gender Information Value Date Recorded Sex Assigned at Not on file Legal Sex Female 5:09 AM CREW LEADER/CONTROL ROOM OPERATOR Gender Identity Not on file Sexual Orientation Not on file documented as of this encounter Plan of Treatment Upcoming Encounters Date Type Department Care Team (Late st Contact Info) Description 12/21/2024 11:00 AM CREW LEADER/CONTROL ROOM OPERATOR Office Visit [facility] [address] [place] [address] Prosper Estrella MD [address] [place] [address] documented as of this encounter Visit Diagnoses Diagnosis Unspecified symptom associated with female genital organs- Primary documented in this encounter Care Teams Systems Auditor Relationship Specialty Start Date End Date Nathan Roland MD [address] [facility] [address] [place] [address] PCP - General Internal Medicine 04/17/10 documented as of this encounter
--- OUTSIDE RECORDS SUMMARY | 2024-12-17 12:22 | XMS_ITS | Clinical Summary ---
Author Organization [facility] [employer] [facility] Address [address] [facility] [address] [place] [address] Phone Care Team Providers Care Manager Programming Name Role Phone Nathan Roland MD Primary Care Provider [phone] Medications ergocalciferol 1.25 MG (96293 UT) capsule Take 1 capsule (50,000 Units total) by mouth 1 (one) time per week 12 capsule 1 02/27/2022 Active Social History Tobacco Use Types Packs/Day Years Used Date Smoking Tobacco: Never Assessed Comments Unknown Sex and Gender Information Value Date Recorded Sex Assigned at Not on file Legal Sex Female 4:34 PM EDT Gender Identity Not on file Sexual Orientation Not on file Last Filed Vital Signs Vital Sign Reading Time Taken Comments Blood Pressure 138/80 02/27/2022 1:47 PM VAT WASHER Pulse 68 02/27/2022 1:47 PM VAT WASHER Temperature 36.2 C (97.2 F) 02/27/2022 1:47 PM VAT WASHER Respiratory Rate 18 02/27/2022 1:47 PM VAT WASHER Oxygen Saturation 97% 02/27/2022 1:47 PM VAT WASHER Inhaled Oxygen Concentration - - Weight 66.2 kg (146 lb) 02/27/2022 1:47 PM VAT WASHER Height 154.9 cm (5' 1) 02/27/2022 1:47 PM VAT WASHER Body Mass Index 27.59 02/27/2022 1:47 PM VAT WASHER Plan of Treatment Health Maintenance Due Date Last Done Comments Pneumococcal Vaccine: 50+ Ye ars (1 of 2 - PCV) 09[birth year]26/1964 Diabetes: Hemoglobin A1C 10/25/2021 Diabetes: Ophthalmology Exam 10/25/2021 Diabetes: Pedal Pulse Checked 10/25/2021 Diabetes: Sensory Foot Exam 10/25/2021 Diabetes: Visual Foot Exam 10/25/2021 Influenza Vaccine (#1) 2024 Hepatitis B Vaccine Aged Out No longe r eligible based on patient's age to complete this topic Insurance Aetna MCR Adv PPO ([id number]) Care Teams Manager Programming Relationship Specialty Start Date End Date Nathan Roland MD PCP - General Internal Medicine 10/25/21
--- OUTSIDE RECORDS SUMMARY | 2024-12-17 12:22 | XMS_ITS | Encounter Summary ---
Author Organization [facility] Address [address] [place] [address] Care Team Providers Care Ict Project Manager Name Role Phone Nathan Roland MD Primary Care Provider [phone] Encounter Details Date Type Department Care Team (Late st Contact Info) Description 11/29/2003 Outpatient Historical HIS [facility] ED Chavis, MD Scot [address] [address] PNEUMONIA, ORGANISM NOS (Primary Dx) Social History Tobacco Use Types Packs/Day Years Used Date Smoking Tobacco: Never Assessed Comments Unknown Sex and Gender Information Value Date Recorded Sex Assigned at Not on file Legal Sex Female 5:09 AM SMALL BUSINESS REPRESENTATIVE Gender Identity Not on file Sexual Orientation Not on file documented as of this encounter Plan of Treatment Upcoming Encounters Date Type Department Care Team (Late st Contact Info) Description 12/21/2024 11:00 AM SMALL BUSINESS REPRESENTATIVE Office Visit [facility] Endocrinology [address] [place] [address] Prosper Estrella MD [address] [place] [address] documented as of this encounter Visit Diagnoses Diagnosis Pneumonia, organism unspecified(486)- Primary Pneumonia, organism unspecified documented in this encounter Care Teams Ict Project Manager Relationship Specialty Start Date End Date Nathan Roland MD [address] [place] [address] PCP - General Internal Medicine 04/17/10 documented as of this encounter
--- NOTE | 2024-12-17 12:56 | ED_ITS ---
HPI - Fall General Chief Complaint: Fall Stated Complaint: Fall -left side pain-diff walking Time Seen by Provider: 12/17/24 12:32 History of Present Illness HPI Narrative: 79 years old white female came to the ED with her from home complaining of left hip pain laterally and laceration left lower leg yesterday after missing a step going up stairs and landed on the left side of her hip. She denies head injury, neck pain, back pain, chest pain abdominal pain or other injuries. Patient was able to manage laceration with Steri-Strip. Currently no bleeding. This occurred at last night Related Data Allergies Allergy/AdvReac Type Severity Reaction Status Date / Time No Known Allergies Allergy Verified 12/17/24 11:10 Review of Systems Review of Systems: All systems reviewed & are unremarkable except as noted in HPI and below Exam Narrative: General appearance: Well-developed, well-nourished Skin: Normal color. Left lower leg showing Steri-Stripped laceration laterally, no active bleeding or swelling, surrounded by bruises. No warmth or discharge Head: Normocephalic, nontraumatic Eyes: Clear conjunctiva ENT: Oropharynx normal, ears normal, nose normal Neck: Supple, nontender Chest and respiratory: Airway patent, no respiratory distress, no accessory muscle use Heart: Regular rate/rhythm Abdomen: Soft, nontender, no organomegaly, quiet bowel sounds Vascular: Normal peripheral pulses, normal capillary refill. Musculoskeletal: Diffuse tenderness left hip laterally, SLIGHT LIMITED RANGE OF MOTION BECAUSE THE PAIN Neurologic: Alert and oriented ?3, SHOTGUN SHELL ASSEMBLY MACHINE OPERATOR is normal as tested, no gross motor deficit Course Vital Signs Vital signs: Vital Signs Temperature 36.4 C 12/17/24 11:14 Pulse Rate 60 12/17/24 11:14 Respiratory Rate 16 12/17/24 11:14 Blood Pressure 145/60 H 12/17/24 11:14 Pulse Oximetry 96 12/17/24 11:14 Oxygen Delivery Room Air 12/17/24 11:14 Temperature 36.4 C 12/17/24 11:14 Pulse Rate 60 12/17/24 11:14 Respiratory Rate 16 12/17/24 11:14 Blood Pressure 145/60 H 12/17/24 11:14 Pulse Oximetry 96 12/17/24 11:14 Oxygen Delivery Room Air 12/17/24 11:14 MDM - Fall MDM Narrative Medical decision making narrative: LEFT HIP PAIN AFTER A FALL DIFFERENTIAL DIAGNOSIS INCLUDES CONTUSION VERSUS HIP FRACTURE VERSUS PELVIC FRACTURE, X-RAY LEFT HIP SHOWED NO ACUTE OSSEOUS ABNORMALITY. Differential Diagnosis Differential diagnosis: Likely other ( ABOVE) Imaging Data Radiologist's impression: Impressions Hip/Pelvis X-Ray 12/17/24 13:38 IMPRESSION: No acute abnormalities are seen. Critical Care Time Critical Care Time Critical Care Time: No Discharge Plan Discharge Clinical Impression: Contusion of hip Patient Disposition: Home Condition: Stable Instructions: Contusion in Adults (ED), Hip Pain (ED) Additional Instructions: RETURN IF SYMPTOMS ARE WORSENING , CALL YOUR FAMILY PHYSICIAN FOR APPOINTMENT, TAKE TYLENOL, IBUPROFEN NEEDED FOR ACHES AND PAIN, CONTINUE HOME MEDICATIONS. Patient Language: Sudanese Follow-up/Referrals: Luan,Nathan Pruett MD [Primary Care Provider]
[2024-12-17] MEDS: TETANUS,DIPHTHERIA,AC PERTUSSIS ADULT (0.5 ML) BOOSTRIX IM (13:08)
--- OUTSIDE RECORDS SUMMARY | 2024-12-17 13:28 | XMS_ITS | Encounter Summary ---
Author Organization [facility] Address [address] [place] [address] Care Team Providers Care Electrolysis Investigator Name Role Phone Nathan Roland MD Primary Care Provider [phone] Srinivas Hogan MD Unavailable [phone] Encounter Details Date Type Department Care Team (Late st Contact Info) Description 05/29/2023 Lab Requisition [facility] - DermPath Lab [address] [place] [id number] [place] [address] [place] [phone] Neoplasm of uncertain behavior of skin Social [...] AM CDT) Case Report Dermatopathology Report Case: [id number] Authorizing Provider: Jay Horton MD Collected: 05/29/2023 03:33 AM Ordering Location: [facility] - Received: 05/30/2023 12:53 PM [...] specimen consists of a shave biopsy measuring [id number] mm. Jar 0. 1:35 PM CDT DERMATOPATHOLOGY [...] characteristic determined by the Dermatopathology Laboratory at [facility], directed by Dr. Ricky De La Fuente. These tests need not be, and therefore are not, approved by the [place] Food and Drug Administration. The tests are used for clinical purposes. Billing Codes Specimen Charges Stain Charges 72977 1 1:35 PM CDT DERMATOPATHOLOGY LABORATORY Embedded Images 1:35 PM CDT DERMATOPATHOLOGY LABORATORY Pathology/Cytolo gy TISSUE SPECIMEN FROM SKIN / Unknown 05/29/2023 3:33 AM CDT 05/30/2023 12:53 PM CDT us Jay Horton MD LAB - PATHOLOGY/CYTOLOGY ORD ERABLES Final Result DERMATOPATHOLOGY LABORATORY [facility] - Department of Dermatology [address], [address] [place], [place] [address] [[email or web address] [phone] documented in this encounter Visit Diagnoses Diagnosis Neoplasm of uncertain behavior of skin documented in this encounter Care Teams Electrolysis Investigator Relationship Specialty Start Date End Date Nathan Roland MD [facility] [address] [address] [place] [address] PCP - General Internal Medicine 07/14/14 [place] [address] [place] [address] Orthopedic Surgery 08/13/14 documented as of this encounter
--- OUTSIDE RECORDS SUMMARY | 2024-12-17 13:28 | XMS_ITS | Encounter Summary ---
Author Organization [facility] Address [address] [place] [address] Care Team Providers Care Torch Operator Name Role Phone Nathan Roland MD [...] on file Legal Sex Female 5:09 AM PUNCH OPERATOR Gender Identity Not on file Sexual Orientation Not on file documented as of this encounter Plan of Treatment Upcoming Encounters Date Type Department Care Team (Late st Contact Info) Description 12/21/2024 11:00 AM PUNCH OPERATOR Office Visit [facility] Endocrinology [address] [place] [address] Prosper Estrella MD [address] [place] [address] documented as of this encounter Visit Diagnoses Diagnosis Unspecified symptom associated with female genital organs- Primary documented in this encounter Care Teams Torch Operator Relationship Specialty Start Date End Date Nathan Roland MD [address] [facility] [address] [place] [address] PCP - General Internal Medicine 04/17/10 documented as of this encounter
--- OUTSIDE RECORDS SUMMARY | 2024-12-17 13:28 | XMS_ITS | Encounter Summary ---
Author Organization [facility] Address [address] [place] [address] Care Team Providers Care Rn Referral Name Role Phone Nathan Roland MD Primary Care Provider [phone] Encounter Details Date Type Department Care Team (Late st Contact Info) Description 04/21/1999 Outpatient Historical HIS GI LAB Jeronimo Casey MD NO ADDRESS ON FILE Social History Tobacco Use Types Packs/Day Years Used Date Smoking Tobacco: Never Assessed Comments Unknown Sex and Gender Information Value Date Recorded Sex Assigned at Not on file Legal Sex Female 5:09 AM DIRECTOR CORPORATE COMPLIANCE Gender Identity Not on file Sexual Orientation Not on file documented as of this encounter Plan of Treatment Upcoming Encounters Date Type Department Care Team (Late st Contact Info) Description 12/21/2024 11:00 AM DIRECTOR CORPORATE COMPLIANCE Office Visit [facility] Endocrinology [address] [place] [address] Prosper Estrella MD [address] [place] [address] documented as of this encounter Visit Diagnoses Not on filedocumented in this encounter Care Teams Rn Referral Relationship Specialty Start Date End Date Nathan Roland MD [address] [facility] [address] [place] [phone] PCP - General Internal Medicine 04/17/10 documented as of this encounter
--- OUTSIDE RECORDS SUMMARY | 2024-12-17 13:28 | XMS_ITS | Clinical Summary ---
Author Organization [facility] Address [address] [place] [address] Care Team Providers Care Canal Tender Name Role Phone Nathan Roland MD Primary [...] on file Legal Sex Female 1:23 AM DRAIN TILE PRESS OPERATOR Gender Identity Not on file Sexual [...] history exists Medical Devices Implanted Type Area Analysis Specialist Device Identifier Shelf Expiration Date Model / Serial / Lot Angio-Seal Vip 6fr Closere Device [id number] - [id number] Implanted:Qty: 1 on 08/16/2021 by Storm Cole MD at [facility] 05/18/2022 [id number] / / [id number] Procedures Procedure Name Priority Date/Time Associated Diagnosis [...] AM CDT 08/16/2021 6:26 AM CDT us Stomr Cole MD LAB BLOOD ORDERABLES Final Result [facility] [address] [facility] [place] [address] * Lipid panel (08/16/2021 6:23 [...] LAB BLOOD ORDERABLES Final Result [facility] [address] [facility] [place] [address] from Last 3 Months or Most Recently Relevant to Health Maintenance Insurance [facility] MEDICARE ADVANTAGE [facility] MEDICARE ADVANTAGE AET MEDICARE Advance Directives For more information, please contact: [phone] * Full Code (Latest Code Status on File) Date Activated Date Inactivated Comments 08/14/2021 4:49 PM 08/16/2021 5:50 PM Care Teams Canal Tender Relationship Specialty Start Date End Date Nathan Roland MD [address] [facility] [address] [place] [address] PCP - General Internal Medicine 08/15/21
--- OUTSIDE RECORDS SUMMARY | 2024-12-17 13:28 | XMS_ITS | Clinical Summary ---
Author Organization [facility] [employer] [facility] Address [address] [facility] [address] [place] [address] Phone Care Team Providers Care Durable Medical Equipment Technician Name Role Phone Nathan Roland MD Primary Care Provider [phone] Medications ergocalciferol 1.25 MG (02021 UT) capsule Take 1 capsule (50,000 Units [...] Comments Blood Pressure 138/80 02/27/2022 1:47 PM LABOR EMPLOYMENT ASSOCIATE Pulse 68 02/27/2022 1:47 PM LABOR EMPLOYMENT ASSOCIATE Temperature 36.2 C (97.2 F) 02/27/2022 1:47 PM LABOR EMPLOYMENT ASSOCIATE Respiratory Rate 18 02/27/2022 1:47 PM LABOR EMPLOYMENT ASSOCIATE Oxygen Saturation 97% 02/27/2022 1:47 PM LABOR EMPLOYMENT ASSOCIATE Inhaled Oxygen Concentration - - Weight 66.2 kg (146 lb) 02/27/2022 1:47 PM LABOR EMPLOYMENT ASSOCIATE Height 154.9 cm (5' 1) 02/27/2022 1:47 PM LABOR EMPLOYMENT ASSOCIATE Body Mass Index 27.59 02/27/2022 1:47 PM LABOR EMPLOYMENT ASSOCIATE Plan of Treatment Health Maintenance Due Date [...] this topic Insurance [employer] MCR Adv PPO ([id number]) Care Teams Durable Medical Equipment Technician Relationship Specialty Start Date End Date Nathan Roland MD PCP - General Internal Medicine 10/25/21
--- OUTSIDE RECORDS SUMMARY | 2024-12-17 13:28 | XMS_ITS | Encounter Summary ---
Author Organization [facility] Address [address] [place] [address] Care Team Providers Care Rn Document Improvement Specialist Name Role Phone Nathan Roland MD Primary Care Provider [phone] Encounter Details Date Type Department Care Team (Late st Contact Info) Description 11/29/2003 Outpatient Historical HIS [facility] Chavis, MD Scot [address] [address] PNEUMONIA, ORGANISM NOS (Primary Dx) Social History Tobacco Use Types Packs/Day Years Used Date Smoking Tobacco: Never Assessed Comments Unknown Sex and Gender Information Value Date Recorded Sex Assigned at Not on file Legal Sex Female 5:09 AM EMPLOYEE RELATIONS SPECIALIST Gender Identity Not on file Sexual Orientation Not on file documented as of this encounter Plan of Treatment Upcoming Encounters Date Type Department Care Team (Late st Contact Info) Description 12/21/2024 11:00 AM EMPLOYEE RELATIONS SPECIALIST Office Visit [facility] Endocrinology [address] [place] [address] Prosper Estrella MD [address] [place] [address] documented as of this encounter Visit Diagnoses Diagnosis Pneumonia, organism unspecified(486)- Primary Pneumonia, organism unspecified documented in this encounter Care Teams Rn Document Improvement Specialist Relationship Specialty Start Date End Date Nathan Roland MD [address] [place] [address] PCP - General Internal Medicine 04/17/10 documented as of this encounter
--- OUTSIDE RECORDS SUMMARY | 2024-12-17 13:28 | XMS_ITS | Encounter Summary ---
Author Organization [facility] Address [address] [facility] [place] [address] Care Team Providers Care Relay Motorman Name Role Phone Nathan Roland MD Primary Care Provider [phone] Srinivas Hogan MD Unavailable [phone] Encounter Details Date Type Department Care Team (Late st Contact Info) Description 07/10/2023 Lab Requisition [facility] - DermPath Lab [address] [facility] [place] [phone] [place] [address] [phone] Squamous cell carcinoma of skin of right [...] AM CDT) Case Report Dermatopathology Report Case: [id number] Authorizing Provider: Jay Horton MD Collected: 07/10/2023 12:00 AM Ordering Location: [facility] - Received: 07/11/2023 01:56 PM DermPath [...] of a non-oriented ellipse of skin measuring [id number] mm. The epidermal surface is unremarkable. The [...] characteristic determined by the Dermatopathology Laboratory at [facility], directed by Dr. Ricky De La Fuente. These tests need not be, and therefore are not, approved by the [place] Food and Drug Administration. The tests are used for clinical purposes. Billing Codes Specimen Charges Stain Charges 54876 01989 1 1 4 12:30 PM CDT DERMATOPATHOLOGY LABORATORY Embedded Images 12:30 PM CDT DERMATOPATHOLOGY LABORATORY Pathology/Cytology TISSUE SPECIMEN FROM SKIN / Unknown 07/10/2023 07/11/2023 1:56 PM CDT Miscellaneous samples (specimen) TISSUE SPECIMEN FROM SKIN / Unknown 07/10/2023 07/11/2023 1:56 PM CDT Jay Horton MD LAB - PATHOLOGY/CYTOLOGY ORD ERABLES Final Result DERMATOPATHOLOGY LABORATORY [facility] - Department of Dermatology [facility] Medicine [address] [place] [address], [address] [phone] documented in this encounter Visit Diagnoses Diagnosis 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
--- OUTSIDE RECORDS SUMMARY | 2024-12-17 13:28 | XMS_ITS | Clinical Summary ---
Author Organization [facility] Address [address] [place] [address] Phone Care Team Providers Care Waste Water Plant Operator Name Role Phone Nathan Roland MD Primary Care Provider [phone] Allergies No known active allergies Medications P-EPHED [...] MD Referring Provider: Nathan Roland MD [address] [facility] [address] [place] [phone] Other: Dr Dianne Boyce Problem Noted Date Diagnosed Date Vulvar dermatitis 12/02/2017 Lumbar radiculopathy 08/01/2011 Invasive ductal carcinoma of breast, RIGHT Overview (06/04/2012): PATHOLOGY: T1 N1 Date: 04/17/10 core bx, 05/26/10 lumpectomy with SLN; Breast: Right Cell type: IDC, multifocal 1.0cm, + DCIS ER: (+) 8/8 DC: (+) 7/8 Ki67: 31% Her2 esau: (not) [...] Data STL ABSTRACTION Provider, Abstract 09/22/2024 Telephone [facility] Endocrinology [address] [place] [address] Prosper Estrella MD Scheduling from [...] on file Legal Sex Female 5:09 AM SERVICE VEHICLE OPERATOR Gender Identity Not on file Sexual [...] st Contact Info) Description 12/21/2024 11:00 AM SERVICE VEHICLE OPERATOR Office Visit [facility] Endocrinology [address] [place] [address] Prosper Estrella MD [address] [place] [address] Health Maintenance Due Date Last [...] OR MORE SITES Routine 03/16/2011 10:46 AM SERVICE VEHICLE OPERATOR Post-menopausal Invasive ductal carcinoma of breast (CMS/HCC) [...] RECOMMENDATION: 1. Recommend annual mammography. DICTATION LOCATION: [facility] Narrative 09/02/2024 12:18 PM CDT BILATERAL [...] 1 OR MORE SITES (03/16/2011 10:46 AM SERVICE VEHICLE OPERATOR) Anatomical Region Laterality Modality Computed Radiogr aphy 03/16/2011 10:4 5 AM SERVICE VEHICLE OPERATOR Narrative 03/16/2011 10:53 AM SERVICE VEHICLE OPERATOR XR DEXA BONE DENSITY AXIAL 1 OR MORE SITES HISTORY: 65 yo F with postmenopausal symptoms with a history of breast carcinoma needing evaluation for osteoporosis. PROCEDURE: Using a [employer] dual energy x-ray absorptiometry system, the patient's [...] needing evaluation for osteoporosis. PROCEDURE: Using a [employer] dual energy x-ray absorptiometry system, the patient's [...] prior DEXA studies are available for comparison. uLdy Eugene DO DIAGNOSTIC IMAGING ORDERABL ES Final Result from Last 3 Months or Most Recently Relevant to Health Maintenance Insurance [employer] PPO MCR Advance Directives For more information, please contact: [phone] * Full Code (Latest Code Status on [...] 10:28 AM 06/30/2010 4:56 PM Care Teams Waste Water Plant Operator Relationship Specialty [place] [address] [place] [address] [address] [place] [address] PCP - General Internal Medicine 04/17/10
--- OUTSIDE RECORDS SUMMARY | 2024-12-17 13:28 | XMS_ITS | Encounter Summary ---
Author Organization [facility] Address [address] [place] [address] Care Team Providers Care Claim Inspector Name Role Phone Nathan Roland MD Primary Care Provider [phone] Encounter Details Date Type Department Care Team [...] on file Legal Sex Female 5:09 AM CAMPUS INTERVIEWS INTERN Gender Identity Not on file Sexual Orientation Not on file documented as of this encounter Plan of Treatment Upcoming Encounters Date Type Department Care Team (Late st Contact Info) Description 12/21/2024 11:00 AM CAMPUS INTERVIEWS INTERN Office Visit [facility] Endocrinology [address] [place] [address] Prosper Estrella MD [address] [place] [address] documented as of this encounter Visit Diagnoses Diagnosis Unspecified symptom associated with female genital organs- Primary documented in this encounter Care Teams Claim Inspector Relationship Specialty Start Date End Date Nathan Roland MD [address] [facility] [address] [place] [address] PCP - General Internal Medicine 04/17/10 documented as of this encounter
--- OUTSIDE RECORDS SUMMARY | 2024-12-17 13:28 | XMS_ITS | Clinical Summary ---
Author Organization [facility] Address [address] [place] [address] Care Team Providers Care Public Service Director Name Role Phone Nathan Roland MD Primary Care Provider [phone] Srinivas Hogan MD Unavailable Source Comments [facility],non-owned Affiliates and Associated Physician Practices is amultiple site organization consisting of ambulatory clinics and hospital sitesin [place], [place], [place] and [place]. This disclosure is being madepursuant to the Care Everywhere program and may not contain all information available regarding this patient. Last updated 17.[facility] Allergies No known active allergies Medications * [...] topic Insurance [employer] MEDICARE ADV Care Teams Public Service Director Relationship Specialty Start Date End Date Nathan Roland MD [address] [address] [address] [place] [address] PCP - General Internal Medicine 07/14/14 [place] [address] [place] [address] Orthopedic Surgery 08/13/14
--- OUTSIDE RECORDS SUMMARY | 2024-12-17 13:28 | XMS_ITS | Encounter Summary ---
Author Organization [facility] Address [address] [place] [address] Care Team Providers Care Movie Theater Manager Name Role Phone Nathan Roland MD Primary Care Provider [phone] Srinivas Hogan MD Unavailable [phone] Encounter Details Date Type Department Care Team (Late st Contact Info) Description 06/23/2019 Lab Requisition [facility] [address], [facility] [place] [address] [place] [id number] [address] Social History Tobacco Use Types Packs/Day Years [...] AM CDT) Case Report Dermatopathology Report Case: [id number] Authorizing Provider: German Ash MD Collected: 06/22/2019 12:00 AM Ordering Location: [facility] Received: 06/23/2019 07:21 AM Pathologist: [...] specimen consists of a shave biopsy measuring [id number]. Jar 0. 0 1:27 PM CDT DERMATOPATHOLOGY [...] characteristic determined by the Dermatopathology Laboratory at [facility], directed by Dr. Ricky De La Fuente. These tests need not be, and therefore are not, approved by the [place] Food and Drug Administration. The tests are used for clinical purposes. Billing Codes Specimen Charges Stain Charges 81830 1 0 1:27 PM CDT DERMATOPATHOLOGY LABORATORY Embedded Images 0 1:27 PM CDT DERMATOPATHOLOGY LABORATORY Pathology/Cytolog y TISSUE SPECIMEN FROM SKIN / Unknown 06/22/2019 06/23/2019 7:21 AM CDT us German Ash MD LAB - PATHOLOGY/CYTOLOGY ORDERAB LES Final Result DERMATOPATHOLOGY LABORATORY [facility] - Department of Dermatology [address] [place] [address], [address] [place] [address], [facility] [phone] documented in this encounter Visit Diagnoses Not on filedocumented in this encounter Care Teams Movie Theater Manager Relationship Specialty Start Date End Date Nathan Roland MD [address] [place] [address] [address] [place] [address] PCP - General Internal Medicine 07/14/14 [place] [address] [place] [address] Orthopedic Surgery 08/13/14 documented as of this encounter
[2024-12-17] MEDS: ACETAMINOPHEN 325 MG TABLET 650 MG PO (14:46)
[2024-12-17] MEDS: IBUPROFEN 600 MG TABLET PO (14:46)
== END 2024-12-17 14:56 | disposition home or self-care (01) ==
PROVIDERS: Emergency Provider Emergency Medicine; PCP Internal Medicine
DX: S70.02XD Contusion of left hip, subsequent encounter (principal); S81.812D Laceration without foreign body, left lower leg, subsequent encounter; Z23 Encounter for immunization; W10.9XXD Fall (on) (from) unspecified stairs and steps, subsequent encounter
CPT/HCPCS: 73502; 82948; 90471; 90715; 99283; A9270